=== PATIENT | female | born 1995 | race American Indian/Alaskan Native ===

== ENCOUNTER 2021-03-29 14:26 | Emergency (ER) | payer BC, MEDICAID ==
[2021-03-29 16:24] VITALS: BP 136/78
--- NOTE | 2021-03-29 17:03 | XRay Report ---
CHEST 2 VIEWS INDICATION: cough, SOB. COMPARISON: None FINDINGS: SUPPORT DEVICES: None. HEART: Within normal limits. LUNGS/PLEURA: No acute air space or interstitial disease. No pneumothorax. ADDITIONAL FINDINGS: None. IMPRESSION: 1. No acute findings. Signer Name: Bonilla Doss MD Signed: 03/29/2021 4:58 PM Workstation Name: [id number]
--- NOTE | 2021-03-29 17:08 | Emergency Department Report ---
- General Chief Complaint: Upper Respiratory Infection Stated Complaint: CHEST PPAIN / COUGH / HEADACHE Time Seen by Provider: 03/29/21 16:28 Source: patient Mode of arrival: Ambulatory Limitations: No Limitations - History of Present Illness Initial Comments: Patient is a 25-year-old female presents emergency room complaints of URI symptoms that began 5 days ago. She states that she recently just got home from vacation in [facility]. She has associated dry cough, rhinorrhea, headache, congestion, shortness of breath, chest tightness. She denies any productive cough. She denies any fever, nausea, vomiting, diarrhea, abdominal pain, urinary symptoms. She states the only thing that she has taken for her symptoms is baby cough medicine because she reports is all she had at home. Past medical history of Chiari malformation and kidney stones. No allergies to medications. Last menstrual cycle last week. She denies any known sick contacts. She has not received the COVID-19 vaccine or COVID-19 testing. - Related Data Previous Rx's Medication Instructions Recorded Last Taken Type Ciprofloxacin HCl [Ciprofloxacin 500 mg PO BID #12 tablet 03/04/14 Unknown Rx TAB] HYDROcodone/APAP 5-325 [[place] 1 each PO Q6HR PRN #20 tablet 03/04/14 Unknown Rx 5/325 mg] Benzonatate [Tessalon Perles] 100 mg PO Q8HR PRN #12 capsule 03/29/21 Unknown Rx Fluticasone [Flonase] 1 spray NS QDAY #1 bottle 03/29/21 Unknown Rx Loratadine 10 mg PO DAILY #14 tablet 03/29/21 Unknown Rx guaiFENesin ER [Mucinex ER] 600 mg PO BID #14 tablet.er 03/29/21 Unknown Rx Allergies Allergy/AdvReac Type Severity Reaction Status Date / Time No Known Allergies Allergy Unverified 02/27/14 18:42 ED Review of Systems ROS: Stated complaint: CHEST PPAIN / COUGH / HEADACHE Other details as noted in HPI Comment: All other systems reviewed and negative ED Past Medical Hx - Past Medical History Previous Medical History?: No Additional medical history: Brain tumor - Surgical History Additional Surgical History: Brain surgery @ age 9 - Social History Smoking Status: Never Smoker - Medications Home Medications: Home Medications Medication Instructions Recorded Confirmed Last Taken Type Ciprofloxacin HCl [Ciprofloxacin 500 mg PO BID #12 tablet 03/04/14 Unknown Rx TAB] HYDROcodone/APAP 5-325 [[place] 1 each PO Q6HR PRN #20 tablet 03/04/14 Unknown Rx 5/325 mg] Benzonatate [Tessalon Perles] 100 mg PO Q8HR PRN #12 capsule 03/29/21 Unknown Rx Fluticasone [Flonase] 1 spray NS QDAY #1 bottle 03/29/21 Unknown Rx Loratadine 10 mg PO DAILY #14 tablet 03/29/21 Unknown Rx guaiFENesin ER [Mucinex ER] 600 mg PO BID #14 tablet.er 03/29/21 Unknown Rx ED Physical Exam - General Limitations: No Limitations General appearance: alert, in no apparent distress - Head Head exam: Present: atraumatic, normocephalic - Eye Eye exam: Present: normal appearance - ENT ENT exam: Present: mucous membranes moist - Respiratory Respiratory exam: Present: normal lung sounds bilaterally. Absent: respiratory distress, wheezes, rales, rhonchi, stridor, chest wall tenderness, accessory muscle use, decreased breath sounds, prolonged expiratory - Cardiovascular Cardiovascular Exam: Present: regular rate, normal rhythm, normal heart sounds. Absent: systolic murmur, diastolic murmur, rubs, gallop - Neurological Exam Neurological exam: Present: alert, oriented X3 - Psychiatric Psychiatric exam: Present: normal affect, normal mood - Skin Skin exam: Present: warm, dry, intact ED Course Vital Signs 03/29/21 15:10 Temperature 98.7 F Pulse Rate 80 Respiratory 18 Rate Blood Pressure 136/78 O2 Sat by Pulse 96 Oximetry ED Medical Decision Making - Radiology Data Radiology results: report reviewed Ordering Physician: HARDEEP PINON Date of Service: 03/29/21 Procedure(s): XR chest routine 2V Accession Number(s): [id number] cc: HARDEEP PINON Fluoro Time In Minutes: CHEST 2 VIEWS INDICATION: cough, SOB. COMPARISON: None FINDINGS: SUPPORT DEVICES: None. HEART: Within normal limits. LUNGS/PLEURA: No acute air space or interstitial disease. No pneumothorax. ADDITIONAL FINDINGS: None. IMPRESSION: 1. No acute findings. Signer Name: Bonilla Doss MD Signed: 03/29/2021 4:58 PM Workstation Name: [id number] Transcribed By: AZALEA Dictated By: Bonilla Doss MD Electronically Authenticated By: Bonilla Doss MD Signed Date/Time: 03/29/211657 DD/ 57 TD/TT: - Medical Decision Making Patient is a 25-year-old female presents emergency room complaints of URI symptoms that began 5 days ago. She states that she recently just got home from vacation in [facility]. She has associated dry cough, rhinorrhea, headache, congestion, shortness of breath, chest tightness. She denies any productive cough. She denies any fever, nausea, vomiting, diarrhea, abdominal pain, urinary symptoms. She states the only thing that she has taken for her symptoms is baby cough medicine because she reports is all she had at home. Past medical history of Chiari malformation and kidney stones. No allergies to medications. Last menstrual cycle last week. She denies any known sick contacts. She has not received the COVID-19 vaccine or COVID-19 testing. Vitals are normal. Breath sounds are clear bilaterally, no wheezing, no rales, no rhonchi, no respiratory distress, no accessory muscle use. Chest x-ray: 1. No acute findings. Patient has no fever or productive cough at this time. Symptoms likely related to viral URI. Discussed the importance of follow-up for reexamination. Discussed return precautions. Advised patient Please take medication as prescribed. Increase your fluid intake. Please stop smoking. Follow-up with a primary care doctor for reexamination. Recommend for you to get outpatient COVID-19 testing and quarantine as necessary. Return to the emergency room with new or worsening symptoms. Critical care attestation.: If time is entered above; I have spent that time in minutes in the direct care of this critically ill patient, excluding procedure time. ED Disposition Clinical Impression: Tobacco use URI (upper respiratory infection) Qualifiers: URI type: supraglottitis Airway obstruction: without obstruction Qualified Code(s): J04.30 - Supraglottitis, unspecified, without obstruction Disposition: DC-01 TO HOME OR SELFCARE Is pt being admited?: No Does the pt Need Aspirin: No Condition: Stable Instructions: Viral Respiratory Infection, Steps to Quit Smoking Additional Instructions: Please take medication as prescribed. Increase your fluid intake. Please stop smoking. Follow-up with a primary care doctor for reexamination. Recommend for you to get outpatient COVID-19 testing and quarantine as necessary. Return to the emergency room with new or worsening symptoms. Prescriptions: Fluticasone [Flonase] 1 spray NS QDAY #1 bottle Loratadine 10 mg PO DAILY #14 tablet guaiFENesin ER [Mucinex ER] 600 mg PO BID #14 tablet.er Benzonatate [Tessalon Perles] 100 mg PO Q8HR PRN #12 capsule PRN Reason: cough Referrals: TRESA RASMUSSEN MD [Staff Physician] - 3-5 Days [facility] [Provider Group] - 3-5 Days [facility] [Outside] - 3-5 Days [facility] [Outside] - 3-5 Days Time of Disposition: 17:06 Print Language: TAJIK
== END 2021-03-29 17:15 | disposition home or self-care (01) ==
LOC: ED 14:26
DX: J06.9 Acute upper respiratory infection, unspecified (principal); Z79.899 Other long term (current) drug therapy; Z72.0 Tobacco use
CPT/HCPCS: 71046; 99283

== ENCOUNTER 2021-06-04 21:31 | Observation (INO) | payer BC ==
--- NOTE | 2021-06-04 22:38 | Emergency Department Report ---
ED Abdominal Pain HPI - General Chief Complaint: Abdominal Pain Stated Complaint: KIDNEY STONES PUI?: No Time Seen by Provider: 06/04/21 22:22 Source: patient, EMS Mode of arrival: Ambulatory Limitations: No Limitations - History of Present Illness Initial Comments: Patient is a 25-year-old female that presents emergency room with complaints of left flank pain. Patient states that her flank pain is severe and is a stabbing sensation. Patient states that 10. Patient states the pain is worsening. Patient states that she had her first kidney stone in 2006 and every time she has a kidney stone she has exact same symptoms. Patient states this is the same symptoms she gets every time she gets a kidney stone. Patient denies dysuria. Patient denies fever and chills. Patient denies nausea vomiting. Patient denies diarrhea. Patient denies recent travel. Patient denies recent international travel. Patient denies exposure to the novel coronavirus. Patient denies sick contacts. Patient denies fever and chills. Patient denies cough. Patient denies diarrhea. Patient denies coming in contact with anybody with symptoms of the novel coronavirus. MD Complaint: flank pain -: Sudden, days(s) Location: L flank Radiation: none Migration to: no migration Severity: severe Severity scale (0 -10): 10 Quality: stabbing, sharp Consistency: constant Improves With: rest Worsens With: movement Associated Symptoms: denies other symptoms. denies: nausea, vomiting, diarrhea, fever, chills, constipation, dysuria, hematemesis, hematochezia, melena, hematuria, anorexia, syncope - Related Data LMP (females 10-50): last week Previous Rx's Medication Instructions Recorded Last Taken Type Ciprofloxacin HCl [Ciprofloxacin 500 mg PO BID #12 tablet 03/04/14 Unknown Rx TAB] HYDROcodone/APAP 5-325 [[place] 1 each PO Q6HR PRN #20 tablet 03/04/14 Unknown Rx 5/325 mg] Benzonatate [Tessalon Perles] 100 mg PO Q8HR PRN #12 capsule 03/29/21 Unknown Rx Fluticasone [Flonase] 1 spray NS QDAY #1 bottle 03/29/21 Unknown Rx Loratadine 10 mg PO DAILY #14 tablet 03/29/21 Unknown Rx guaiFENesin ER [Mucinex ER] 600 mg PO BID #14 tablet.er 03/29/21 Unknown Rx Allergies Allergy/AdvReac Type Severity Reaction Status Date / Time No Known Allergies Allergy Unverified 02/27/14 18:42 ED Review of Systems ROS: Stated complaint: KIDNEY STONES Other details as noted in HPI Constitutional: denies: chills, fever Eyes: denies: eye pain, eye discharge, vision change ENT: denies: ear pain, throat pain Respiratory: denies: cough, shortness of breath, wheezing Cardiovascular: denies: chest pain, palpitations Endocrine: no symptoms reported Gastrointestinal: as per HPI. denies: nausea, vomiting, diarrhea Genitourinary: denies: urgency, dysuria, discharge Musculoskeletal: denies: back pain, joint swelling, arthralgia Skin: denies: rash, lesions Neurological: denies: headache, weakness, paresthesias Psychiatric: denies: anxiety, depression Hematological/Lymphatic: denies: easy bleeding, easy bruising ED Past Medical Hx - Past Medical History Previous Medical History?: Yes Hx Psychiatric Treatment: Yes (bipolar/schizophrenia) Additional medical history: Brain tumor - Surgical History Past Surgical History?: Yes Additional Surgical History: Brain surgery @ age 9 - Family History Family history: no significant - Social History Smoking Status: Never Smoker Substance Use Type: None - Medications Home Medications: Home Medications Medication Instructions Recorded Confirmed Last Taken Type Ciprofloxacin HCl [Ciprofloxacin 500 mg PO BID #12 tablet 03/04/14 Unknown Rx TAB] HYDROcodone/APAP 5-325 [[place] 1 each PO Q6HR PRN #20 tablet 03/04/14 Unknown Rx 5/325 mg] Benzonatate [Tessalon Perles] 100 mg PO Q8HR PRN #12 capsule 03/29/21 Unknown Rx Fluticasone [Flonase] 1 spray NS QDAY #1 bottle 03/29/21 Unknown Rx Loratadine 10 mg PO DAILY #14 tablet 03/29/21 Unknown Rx guaiFENesin ER [Mucinex ER] 600 mg PO BID #14 tablet.er 03/29/21 Unknown Rx ED Physical Exam - General Limitations: No Limitations General appearance: alert, in no apparent distress - Head Head exam: Present: atraumatic, normocephalic - Eye Eye exam: Present: normal appearance - ENT ENT exam: Present: mucous membranes moist - Neck Neck exam: Present: normal inspection - Respiratory Respiratory exam: Present: normal lung sounds bilaterally. Absent: respiratory distress - Cardiovascular Cardiovascular Exam: Present: regular rate, normal rhythm. Absent: systolic murmur, diastolic murmur, rubs, gallop - GI/Abdominal GI/Abdominal exam: Present: soft, tenderness (Left flank tenderness to palpation.), normal bowel sounds - Extremities Exam Extremities exam: Present: normal inspection - Back Exam Back exam: Present: normal inspection, CVA tenderness (L) - Neurological Exam Neurological exam: Present: alert, oriented X3 - Psychiatric Psychiatric exam: Present: normal affect, normal mood - Skin Skin exam: Present: warm, dry, intact, normal color. Absent: rash ED Course - Reevaluation(s) Reevaluation #1: Patient states her pain is better. Patient states she feels better. 06/05/21 00:18 Reevaluation #2: Patient states her pain is better. Patient still having moderate tenderness to the left flank area. I discussed all results with patient. I discussed plan of care with patient. Patient agrees with plan of care and admission. Patient to be admitted to the hospitalist service. - Consultations Consultation #1: Hospitalist consulted for admission. Hospitalist to admit patient. 06/05/21 01:18 ED Medical Decision Making - Lab Data Result diagrams: 06/04/21 22:52 06/04/21 22:52 - Radiology Data Radiology results: report reviewed CT ABDOMEN AND PELVIS WITHOUT CONTRAST HISTORY: Patient complains of LEFT sided flank pain.. COMPARISON: None. TECHNIQUE: CT images of the abdomen and pelvis were obtained without administration of intravenous contrast. All CT scans at this location are performed using CT dose reduction for ALARA by means of automated exposure control. FINDINGS: Lungs/bones: Lung bases are clear Abdomen/pelvis: Within limits of a noncontrast exam the liver, spleen, adrenal glands, pancreas, gallbladder and upper GI tract appear normal. Within the lower pole left kidney there is a nonobstructing left renal stone measuring 5 mm. There is also a proximal ureteral stone measuring 3 to 4 mm with some mild left hydronephrosis. Some lobulation of the kidneys bilaterally. 2 nonobstructing right renal stones are seen on coronal images measuring approximately 3 mm. Bowel loops appear normal. Urinary bladder is unremarkable. No acute bone findings are seen. IMPRESSION: 1. Nonobstructing bilateral renal stones. 2. Proximal left ureteral stone measuring 3 to 4 mm with mild left hydronephrosis. - Medical Decision Making Patient is a 25-year-old female that presents emergency room for left flank pain. Patient's pain is severe. Patient had labs done which were essentially unremarkable except for a UTI on her urine. Patient had a CT scan without contrast to rule out kidney stones. Patient's CT shows hydronephrosis and multiple stones. Patient given pain medication Zofran in the ER she responded we ll. Patient given IV fluids. Patient's clinical findings are concerning for pyelonephritis. Patient admitted to the hospital service for further evaluation treatment. Prior to admission, the patient given IV Rocephin and more IV fluids. Critical care time documented due to the multiple reassessments, prolonged time at the bedside, interpretation of diagnostics and labs. - Differential Diagnosis Pyelonephritis, UTI, septic stone, kidney stone, flank pain Critical Care Time: Yes Critical care time in (mins) excluding proc time.: 35 Critical care attestation.: If time is entered above; I have spent that time in minutes in the direct care of this critically ill patient, excluding procedure time. Critical Care Time: 35 minutes ED Disposition Clinical Impression: Pyelonephritis, Renal calculi UTI (urinary tract infection) Qualifiers: Urinary tract infection type: acute cystitis Hematuria presence: with hematuria Qualified Code(s): N30.01 - Acute cystitis with hematuria Disposition: ADMITTED INPATIENT Is pt being admited?: Yes Does the pt Need Aspirin: No Condition: Critical Instructions: Abdominal Pain (ED) Time of Disposition: 01:17
[2021-06-04] MEDS ORDERED: ONDANSETRON 4 MG/2 ML INJ IV ONE (22:39)
[2021-06-04] MEDS ORDERED: SODIUM CHLORIDE 0.9% 1000 ML 1,000 ML IV ONE (22:39)
[2021-06-04] MEDS ORDERED: HYDROmorphone 1 MG/1 ML INJ IV ONE (22:39)
[2021-06-04] MEDS ORDERED: KETOROLAC 30 MG/1 ML INJ IV ONE (22:39)
[2021-06-04 23:31] LABS: Basophils % (Auto) 0.4 % (0.0-1.8); Eosinophils # (Auto) 0.2 K/mm3 (0.0-0.4); Eosinophils % (Auto) 2.3 % (0.0-4.3); Hematocrit 38.2 % (30.3-42.9); Hemoglobin 12.5 gm/dl (10.1-14.3); Lymphocytes # (Auto) 2.3 K/mm3 (1.2-5.4); Lymphocytes % (Auto) 33.7 % (13.4-35.0); Mean Corpuscular HGB Conc 33 % (30-34); Mean Corpuscular Volume 78 fl (79-97); Monocytes # (Auto) 0.9 K/mm3 (0.0-0.8); Monocytes % (Auto) 13.1 % (0.0-7.3); Platelet Count 346 K/mm3 (140-440); Red Cell Distribution Width 15.8 % (13.2-15.2)
[2021-06-04 23:33] LABS: Bilirubin,Urine NEG (Negative); Blood,Urine SM (Negative); Color,Urine Yellow (Yellow); HCG Qualitative,Urine Negative (Negative); Mucus,Urine FEW /HPF; Protein,Urine <15 mg/dL mg/dL (Negative); Urobilinogen,Urine < 2.0 mg/dL (<2.0)
[2021-06-04 23:50] LABS: Alanine Aminotransferase 14 units/L (7-56); Albumin 3.9 g/dL (3.9-5); Blood Urea Nitrogen 8 mg/dL (7-17); Calcium 8.9 mg/dL (8.4-10.2); Hemolysis Index 3
[2021-06-04 23:51] LABS: BUN/Creatinine Ratio 11; Bilirubin,Direct < 0.2 mg/dL (0-0.2)
--- NOTE | 2021-06-05 00:39 | Cat Scan Report ---
CT ABDOMEN AND PELVIS WITHOUT CONTRAST HISTORY: Patient complains of LEFT sided flank pain.. COMPARISON: None. TECHNIQUE: CT images of the abdomen and pelvis were obtained without administration of intravenous co ntrast. All CT scans at this location are performed using CT dose reduction for ALARA by means of au tomated exposure control. FINDINGS: Lungs/bones: Lung bases are clear Abdomen/pelvis: Within limits of a noncontrast exam the liver, spleen, adrenal glands, pancreas, gal lbladder and upper GI tract appear normal. Within the lower pole left kidney there is a nonobstructin g left renal stone measuring 5 mm. There is also a proximal ureteral stone measuring 3 to 4 mm with s ome mild left hydronephrosis. Some lobulation of the kidneys bilaterally. 2 nonobstructing right tim l stones are seen on coronal images measuring approximately 3 mm. Bowel loops appear normal. Urinary bladder is unremarkable. No acute bone findings are seen. IMPRESSION: 1. Nonobstructing bilateral renal stones. 2. Proximal left ureteral stone measuring 3 to 4 mm with mild left hydronephrosis. Signer Name: Jayant Trevizo MD Signed: 06/05/2021 12:34 AM Workstation Name: [id number]
[2021-06-05] MEDS ORDERED: cefTRIAXone/NS 2 GM/100 ML 2 GM/100 ML BAG IV ONE (01:20)
[2021-06-05] MEDS ORDERED: HYDROmorphone 1 MG/1 ML INJ IV ONE (02:24)
[2021-06-05] MEDS ORDERED: HYDROmorphone 1 MG/1 ML INJ ONE (02:25)
[2021-06-05] MEDS: cefTRIAXone/NS 1 GM/50 ML 1 GM/50 ML BAG IV SCH ×2 (02:36→09:50)
[2021-06-05] MEDS ORDERED: SENNOSIDES 8.6 MG TAB PO PRN (03:00)
[2021-06-05] MEDS ORDERED: ONDANSETRON 4 MG/2 ML INJ IV PRN (03:00)
[2021-06-05] MEDS ORDERED: MAGNESIUM HYDROXIDE (MOM) ORAL LIQD UDC PO PRN (03:00)
[2021-06-05] MEDS ORDERED: oxyCODONE /ACETAMINOPHEN 5-325MG TAB PO PRN (03:00)
[2021-06-05] MEDS ORDERED: SODIUM CHLORIDE 0.9% 1000 ML 1,000 ML IV SCH (03:00)
[2021-06-05] MEDS ORDERED: MORPHINE 4 MG/1 ML INJ IV PRN (03:00)
[2021-06-05] MEDS ORDERED: ACETAMINOPHEN 325 MG TAB PO PRN (03:00)
[2021-06-05] MEDS ORDERED: NALOXONE 0.4 MG/1 ML INJ IV PRN (03:00)
[2021-06-05] MEDS ORDERED: ALUM-MAG HYDROXIDE-SIMETHICONE 200-200-20MG/5ML ORAL LIQD 30 ML PO PRN (03:00)
[2021-06-05] MEDS ORDERED: MORPHINE 2 MG/1 ML INJ IV PRN (03:00)
[2021-06-05] MEDS ORDERED: METOCLOPRAMIDE 10 MG/2 ML INJ IV PRN (03:00)
--- NOTE | 2021-06-05 03:00 | History and Physical Report ---
History of Present Illness Date of examination: 06/05/21 Date of admission: 06/05/21 01:23 Chief complaint: flank pain History of present illness: Patient is a 25-year-old female seen in the ED at bedside. Patient presents to emergency room with complaints of left flank pain. Patient states that her flank pain is severe and is a stabbing sensation. Patient states that 10 in a pain scale of 0-10. Patient states that she had her first kidney stone in 2006 and every time she has a kidney stone she has exact same symptoms. Patient states this is the same symptoms she gets every time she gets a kidney stone. Patient denies dysuria, fever and chills, nausea and vomiting. I reviewed medication record, vital signs, and medical history. CT of the abdomen and pelvis doneshowed nonobstructing bilateral renal stones and mild left hydronephrosis and proximal left ureteral stone measuring 3 to 4 mm. Urologist consulted. Past History Past Medical History: No medical history Past Surgical History: No surgical history Social history: no significant social history Medications and Allergies Allergies Allergy/AdvReac Type Severity Reaction Status Date / Time No Known Allergies Allergy Unverified 02/27/14 18:42 Home Medications Medication Instructions Recorded Confirmed Last Taken Type Ciprofloxacin HCl [Ciprofloxacin 500 mg PO BID #12 tablet 03/04/14 06/05/21 03/30/21 21:30 Rx TAB] HYDROcodone/APAP 5-325 [[place] 1 each PO Q6HR PRN #20 tablet 03/04/14 06/05/21 03/31/21 21:00 Rx 5/325 mg] Benzonatate [Tessalon Perles] 100 mg PO Q8HR PRN #12 capsule 03/29/21 06/05/21 04/01/21 20:50 Rx Fluticasone [Flonase] 1 spray NS QDAY #1 bottle 03/29/21 Unknown Rx Loratadine 10 mg PO DAILY #14 tablet 03/29/21 06/05/21 03/29/21 Rx guaiFENesin ER [Mucinex ER] 600 mg PO BID #14 tablet.er 03/29/21 06/05/21 03/29/21 Rx Active Meds: Active Medications Ceftriaxone Sodium (Rocephin/Ns 1 Gm/50 Ml) 1 gm in 50 mls @ 100 mls/hr IV Q24HR [facility]; Protocol Last Admin: 06/05/21 02:36 Dose: Not Given Documented by: Review of Systems Constitutional: fatigue, weakness Ears, nose, mouth and throat: no epistaxis, no bleeding gums Cardiovascular: no chest pain Gastrointestinal: abdominal pain Genitourinary Female: flank pain, urinary frequency, urgency Rectal: no hemorrhoids Musculoskeletal: no neck pain Integumentary: no rash, no pruritis, no redness Neurological: no head injury Hematologic/Lymphatic: no easy bruising, no easy bleeding Allergic/Immunologic: no urticaria, no allergic rhinitis Exam - Constitutional General appearance: Present: mild distress, obese - EENT Eyes: Present: PERRL ENT: hearing intact, clear oral mucosa - Neck Neck: Present: supple, normal ROM - Respiratory Respiratory effort: normal Respiratory: bilateral: CTA - Cardiovascular Heart Sounds: Present: S1 & S2. Absent: rub, click - Extremities Extremities: pulses symmetrical, No edema Peripheral Pulses: within normal limits - Abdominal General gastrointestinal: Present: soft, tender, non-distended, normal bowel sounds Female genitourinary: Present: normal - Integumentary Integumentary: Present: clear, warm, dry - Musculoskeletal Musculoskeletal: gait normal, strength equal bilaterally - Psychiatric Psychiatric: appropriate mood/affect, intact judgment & insight - Neurologic Neurologic: CNII-XII intact, moves all extremities Results - Labs CBC & Chem 7: 06/04/21 22:52 06/04/21 22:52 Labs: Abnormal lab results 06/04/21 06/04/21 06/04/21 Range/Units 22:52 22:52 23:23 MCV 78 L (79-97) fl MCH 25 L (28-32) pg RDW 15.8 H (13.2-15.2) % Moca % (Auto) 13.1 H (0.0-7.3) % [place] # (Auto) 0.9 H (0.0-0.8) K/mm3 Carbon Dioxide 31 H (22-30) mmol/L Glucose 113 H (65-100) mg/dL Urine WBC (Auto) 27.0 H (0.0-6.0) /HPF Assessment and Plan - Patient Problems (1) Pyelonephritis Current Visit: Yes Status: Acute Plan to address problem: Empiric antibiotic with Rocephin IV hydration Urine culture follow-up with results (2) Renal calculi Current Visit: Yes Status: Acute Plan to address problem: CT of the abdomen and pelvis doneshowed nonobstructing bilateral renal stones and mild left hydronephrosis. Proximal left ureteral stone measuring 3 to 4 mm Continue IV hydration. Consult urologist (3) Morbid obesity due to excess calories Current Visit: Yes Status: Acute Plan to address problem: Discussed lifestyle modification Healthy diet and regular exercise Check hemoglobin A1c (4) DVT prophylaxis Current Visit: Yes Status: Acute Plan to address problem: Subcutaneous lovenox
[2021-06-05] MEDS ORDERED: ENOXAPARIN 40 MG/0.4 ML INJ SUB-Q SCH (10:00)
[2021-06-05] MEDS ORDERED: FAMOTIDINE 20 MG/2 ML INJ IV SCH (10:00)
--- NOTE | 2021-06-05 12:31 | Consultation ---
History of Present Illness - Reason for Consult Consult date: 06/05/21 - History of Present Illness NEW TO OUR SERVICE PT EATING AT TIME OF INTERVIEW RELOCATED BACK TO [place] Patient is a 25-year-old female seen in the ED at bedside. Patient presents to emergency room with complaints of left flank pain. Patient states that her flank pain is severe and is a stabbing sensation. Patient states that 10 in a pain scale of 0-10. Patient states that she had her first kidney stone in 2006 and every time she has a kidney stone she has exact same symptoms. Patient states this is the same symptoms she gets every time she gets a kidney stone. Patient denies dysuria, fever and chills, nausea and vomiting. CT of the abdomen and pelvis doneshowed nonobstructing bilateral renal stones and mild left hydronephrosis and proximal left ureteral stone measuring 3 to 4 mm. ABD SOFT A/P LEFT URETERAL STONE - GETTING BETTER increased BMI INFO GIVEN TRIAL OF CONSERVATIVE THERAPY STRAINER FLOMAX, BACTRIM, NORCO ON CHART IF PAIN IMPROVED--OK TO DC HOME & APPT IN OFFICE PT HAD 4 STONES IN LIFE NEEDS METABOLIC WORKUP OUTPT Past History Past Medical History: No medical history Past Surgical History: No surgical history Social history: no significant social history Medications and Allergies Allergies Allergy/AdvReac Type Severity Reaction Status Date / Time No Known Allergies Allergy Unverified 02/27/14 18:42 Home Medications Medication Instructions Recorded Confirmed Last Taken Type Ciprofloxacin HCl [Ciprofloxacin 500 mg PO BID #12 tablet 03/04/14 06/05/21 03/30/21 21:30 Rx TAB] HYDROcodone/APAP 5-325 [[place] 1 each PO Q6HR PRN #20 tablet 03/04/14 06/05/21 03/31/21 21:00 Rx 5/325 mg] Benzonatate [Tessalon Perles] 100 mg PO Q8HR PRN #12 capsule 03/29/21 06/05/21 04/01/21 20:50 Rx Fluticasone [Flonase] 1 spray NS QDAY #1 bottle 03/29/21 Unknown Rx Loratadine 10 mg PO DAILY #14 tablet 03/29/21 06/05/21 03/29/21 Rx guaiFENesin ER [Mucinex ER] 600 mg PO BID #14 tablet.er 03/29/21 06/05/21 03/29/21 Rx Active Meds: Active Medications Acetaminophen (Acetaminophen 325 Mg Tab) 650 mg PO Q4H PRN PRN Reason: Pain MILD(1-3)/Fever >100.5/TORRES Al Hydrox/Mg Hydrox/Simethicone (Alum-Mag Hydroxide-Simethicone [id number]/5ml Oral Liqd 30 Ml) 30 ml PO Q4H PRN PRN Reason: Indigestion Enoxaparin Sodium (Enoxaparin 40 Mg/0.4 Ml Inj) 40 mg SUB-Q QDAY [facility] Last Admin: 06/05/21 09:51 Dose: 40 mg Documented by: Famotidine (Famotidine 20 Mg/2 Ml Inj) 20 mg IV BID [facility] Last Admin: 06/05/21 09:51 Dose: 20 mg Documented by: Ceftriaxone Sodium (Rocephin/Ns 1 Gm/50 Ml) 1 gm in 50 mls @ 100 mls/hr IV Q24HR JULIAN; Protocol Last Admin: 06/05/21 09:50 Dose: 100 mls/hr Documented by: Sodium Chloride (Nacl 0.9% 1000 Ml) 1,000 mls @ 100 mls/hr IV DIRECT JULIAN Last Admin: 06/05/21 03:51 Dose: 100 mls/hr Documented by: Magnesium Hydroxide (Magnesium Hydroxide (Mom) Oral Liqd Udc) 30 ml PO Q4H PRN PRN Reason: Constipation Metoclopramide HCl (Metoclopramide 10 Mg/2 Ml Inj) 10 mg IV Q6H PRN PRN Reason: Nausea And Vomiting Morphine Sulfate (Morphine 2 Mg/1 Ml Inj) 2 mg IV Q4H PRN PRN Reason: Pain, Moderate (4-6) Naloxone HCl (Naloxone 0.4 Mg/1 Ml Inj) 0.1 mg IV Q2MIN PRN PRN Reason: Res Rate </= 8 or 02 SAT < 92% Ondansetron HCl (Ondansetron 4 Mg/2 Ml Inj) 4 mg IV Q8H PRN PRN Reason: Nausea And Vomiting Oxycodone/Acetaminophen (Oxycodone /Acetaminophen 5-325mg Tab) 1 tab PO Q6H PRN PRN Reason: Pain, Moderate (4-6) Last Admin: 06/05/21 09:50 Dose: 1 tab Documented by: Senna (Sennosides 8.6 Mg Tab) 8.6 mg PO Q12HR PRN PRN Reason: Constipation Sodium Chloride (Sodium Chloride 0.9% 10 Ml Flush Syringe) 10 ml IV BID JULIAN Last Admin: 06/05/21 10:10 Dose: 10 ml Documented by: Exam - Constitutional Vitals: Temp Pulse Resp BP Pulse Ox 99.0 F 65 20 159/96 99 06/05/21 07:00 06/05/21 07:00 06/05/21 07:00 06/05/21 07:00 06/05/21 07:00 Results - Labs CBC & Chem 7: 06/04/21 22:52 06/04/21 22:52 Labs: Abnormal lab results 06/04/21 06/04/21 06/04/21 Range/Units 22:52 22:52 22:52 MCV 78 L (79-97) fl MCH 25 L (28-32) pg RDW 15.8 H (13.2-15.2) % [place] % (Auto) 13.1 H (0.0-7.3) % [place] # (Auto) 0.9 H (0.0-0.8) K/mm3 Carbon Dioxide 31 H (22-30) mmol/L Glucose 113 H (65-100) mg/dL Hemoglobin A1c 6.8 H (4-6) % Urine WBC (Auto) (0.0-6.0) /HPF 06/04/21 Range/Units 23:23 MCV (79-97) fl MCH (28-32) pg RDW (13.2-15.2) % [place] % (Auto) (0.0-7.3) % [place] # (Auto) (0.0-0.8) K/mm3 Carbon Dioxide (22-30) mmol/L Glucose (65-100) mg/dL Hemoglobin A1c (4-6) % Urine WBC (Auto) 27.0 H (0.0-6.0) /HPF
[2021-06-05 14:01] VITALS: BP 115/62
[2021-06-06] MEDS ORDERED: cefTRIAXone/NS 2 GM/100 ML 2 GM/100 ML BAG IV SCH (08:00)
--- NOTE | 2021-06-08 16:49 | Discharge Summary ---
Providers - Providers Date of Admission: 06/05/21 01:23 Date of discharge: 06/05/21 Attending physician: HERMILA NASH MD 06/05/21 06:46 Consult to Physician [CONS] Stat Comment: Consulting Provider: ROLY NAVARRO Physician Instructions: Reason For Exam: Hydronephrosis Primary care physician: BRITNI HARRELL Hospitalization Reason for admission: Urolithiasis Condition: Stable Hospital course: 25-year-old woman with with history of kidney stones who presented to the ED on 06/05 with left flank pain. CT of abdomen pelvis showed nonobstructing bilateral renal stones and mild left hydronephrosis. A ureteral stone was seen on the left measuring 3-4mm. Urology was consulted and evaluated the patient prior to discharge. She was discharged stable no longer having pain later that day. Disposition: 01 HOME / SELF CARE / HOMELESS Final Discharge Diagnosis (Prints w/discharge instructions): Urolithiasis Time spent for discharge: 20 minutes Core Measure Documentation - Palliative Care Palliative Care/ Comfort Measures: Not Applicable - Core Measures Any of the following diagnoses?: none - VTE Discharge Requirements Deep Vein Thrombosis/Pulmonary Embolism Present on Admission: No Has pt received <5 days of overlap therapy or INR<2.0: No Anticoagulant overlap therapy prescribed at discharge: No Contraindication No Overlap Therapy order at DC: Not Indicated - Acute NH Discharge Requirements Aspirin at discharge: No Reason for no aspirin on DC: Patient refusal (Not indicated) NÉSTOR/ARB for LVSD if EF <40%: Not Applicable Reason for no NÉSTOR/ARB: Patient refusal (Not indicated) Beta dotty at discharge: No Reason for no beta dotty on DC: Patient refusal (Not indicated) Statin for LDL = or >100 mg/dl on DC: Not Applicable Reason for no statin on DC: Patient refusal (Not indicated) - Heart Failure Discharge Requirements NÉSTOR/ARB for LVSD if EF <40%: Not Applicable Reason for no NÉSTOR/ARB: Patient refusal (Not indicated) Beta dotty at discharge: No Reason for no beta dotty on DC: Patient refusal (Not indicated) - Stroke Discharge Requirements Statin for LDL = or >70 mg/dl on DC: Not Applicable Reason for no statin on DC: Not Indicated Anticoag for atrial fib/atrial flutter: Not Applicable Reason for no anticoag for AF/F on DC: Not Indicated Antithrombotic for ischemic stroke: No Reason for no antithrombotic on DC: Not Indicated Exam - Physical Exam Narrative exam: GENERAL: Obese. Sitting on the side of the bed in no acute distress. CHEST/LUNGS: CTAB on room air HEART/CARDIOVASCULAR: RRR. No murmur, rubs or gallops appreciated. ABDOMEN: +BS. NT/ND. BACK: No CVA tenderness noted NEURO: No focal motor deficit. Follows all commands and is ambulatory. EXTREMITIES: No cyanosis, clubbing or edema. PSYCH: Cooperative. - Constitutional Vitals: Temp Pulse Resp BP Pulse Ox 97.2 F L 79 22 115/62 95 06/05/21 13:00 06/05/21 13:00 06/05/21 13:00 06/05/21 13:00 06/05/21 13:00 Plan Assessment: Improved. Patient pain well controlled. Denies dysuria, fever and chills. Seen by Urology. Will be discharged with PRN pain medication, flomax. Will follow up with Urology and primary care outpatient to address diabetes. Follow up with: BRITNI HARRELL III, HILARIA-DEANN [Primary Care Provider] - 3-5 Days ROLY NAVARRO MD [Staff Physician] - 06/25/21 Forms: Work/School Release Form Prescriptions: Sulfamethoxazole/Trimethoprim [Bactrim DS TAB] 1 each PO BID 7 Days #14 tablet Tamsulosin [Flomax] 0.4 mg PO QDAY 14 Days #14 cap HYDROcodone/APAP 5-325 [[place] 5/325] 1 each PO Q6HR PRN 3 Days #12 tablet PRN Reason: Pain
== END 2021-06-05 14:20 | disposition home or self-care (01) ==
LOC: ED 21:31 → 4A 06-05 01:23
PROVIDERS: ADMIT Internal Medicine Geriatric Medicine; ATTEND Student in an Organized Health Care Education/Training Program
DX: N12 Tubulo-interstitial nephritis, not specified as acute or chronic (principal); N20.0 Calculus of kidney; E66.01 Morbid (severe) obesity due to excess calories; F31.9 Bipolar disorder, unspecified; N30.01 Acute cystitis with hematuria; F20.9 Schizophrenia, unspecified; Z79.899 Other long term (current) drug therapy; Z98.890 Other specified postprocedural states; Z68.44 Body mass index [BMI] 60.0-69.9, adult
CPT/HCPCS: 36415; 74176; 80048; 80076; 81001; 81025; 83036; 85025; 87086; 96361; 96365; 96366; 96372; 96375; 96376; 99291; G0378; J0696; J1170; J1650; J1885; J2405; J7030

== ENCOUNTER 2021-07-30 17:03 | Emergency (ER) | payer BC ==
[2021-07-30] MEDS ORDERED: methylPREDNISolone Sod Succinate 125 MG/2 ML INJ IV ONE (17:23)
[2021-07-30] MEDS ORDERED: SODIUM CHLORIDE 0.9% 1000 ML 1,000 ML IV ONE (17:23)
[2021-07-30] MEDS ORDERED: FAMOTIDINE 20 MG/2 ML INJ IV ONE (17:24)
[2021-07-30] MEDS ORDERED: diphenhydrAMINE 50 MG/ML VIAL IV ONE (17:24)
[2021-07-30 18:51] VITALS: BP 137/82
[2021-07-30] MEDS ORDERED: ONDANSETRON 4 MG ODT TAB PO ONE (19:26)
[2021-07-30] MEDS ORDERED: HYDROcodone/ACETAMINOPHEN 10-325MG TAB PO ONE (19:26)
[2021-07-30] MEDS ORDERED: AMOXICILLIN/K CLAV 875/125MG TAB PO ONE (19:26)
--- NOTE | 2021-07-30 19:43 | Emergency Department Report ---
ED General Adult HPI - General Chief complaint: Allergic Reaction Stated complaint: LIP SWELLING Time Seen by Provider: 07/30/21 17:23 Source: patient Mode of arrival: Ambulatory Limitations: No Limitations - History of Present Illness Initial comments: Patient presents to the emergency department via EMS with chief complaint of a swollen upper lip that is painful. Patient states her lip began to swell on Tuesday morning and has increasingly become more swollen and painful. Patient denies taking any medications or in addition of medications. Patient denies any trauma. Denies a history of having swelling of her lips. She denies difficulty talking, swallowing, or eating. Patient denies chest pain, shortness breath, rash, headache. -: Gradual Radiation: non-radiation Severity scale (0 -10): 3 Quality: aching Consistency: constant Improves with: none Worsens with: none Associated Symptoms: denies other symptoms Treatments Prior to Arrival: none - Related Data Previous Rx's Medication Instructions Recorded Last Taken Type HYDROcodone/APAP 5-325 [[place] 1 each PO Q6HR PRN 3 Days #12 06/05/21 Unknown Rx 5/325] tablet Sulfamethoxazole/Trimethoprim 1 each PO BID 7 Days #14 tablet 06/05/21 Unknown Rx [Bactrim DS TAB] Tamsulosin [Flomax] 0.4 mg PO QDAY 14 Days #14 cap 06/05/21 Unknown Rx Acetaminophen/Codeine [Tylenol 1 tab PO Q6H PRN #15 tab 07/30/21 Unknown Rx /Codeine # 3 tab] Penicillin V Potassium 500 mg PO TID #30 tablet 07/30/21 Unknown Rx predniSONE [Deltasone] 20 mg PO DAILY #15 tablet 07/30/21 Unknown Rx Allergies Allergy/AdvReac Type Severity Reaction Status Date / Time No Known Allergies Allergy Verified 07/30/21 17:05 ED Review of Systems ROS: Stated complaint: LIP SWELLING Other details as noted in HPI Comment: All other systems reviewed and negative Constitutional: denies: chills, fever Eyes: denies: eye pain, eye discharge, vision change ENT: denies: ear pain, throat pain Respiratory: denies: cough, shortness of breath, wheezing Cardiovascular: denies: chest pain, palpitations Endocrine: no symptoms reported Gastrointestinal: denies: abdominal pain, nausea, diarrhea Genitourinary: denies: urgency, dysuria, discharge Musculoskeletal: denies: back pain, joint swelling, arthralgia Skin: denies: rash, lesions Neurological: denies: headache, weakness, paresthesias Psychiatric: denies: anxiety, depression Hematological/Lymphatic: denies: easy bleeding, easy bruising ED Past Medical Hx - Past Medical History Hx Congestive Heart Failure: No Hx Diabetes: No Hx Arthritis: No Hx Kidney Stones: Yes (right kidney stone) Hx Psychiatric Treatment: Yes (bipolar/schizophrenia) Hx Asthma: No Hx COPD: No Additional medical history: Brain tumor - Surgical History Additional Surgical History: Brain surgery @ age 9 - Social History Smoking Status: Never Smoker Substance Use Type: None - Medications Home Medications: Home Medications Medication Instructions Recorded Confirmed Last Taken Type HYDROcodone/APAP 5-325 [[place] 1 each PO Q6HR PRN 3 Days #12 06/05/21 07/30/21 Unknown Rx 5/325] tablet Sulfamethoxazole/Trimethoprim 1 each PO BID 7 Days #14 tablet 06/05/21 07/30/21 Unknown Rx [Bactrim DS TAB] Tamsulosin [Flomax] 0.4 mg PO QDAY 14 Days #14 cap 06/05/21 07/30/21 Unknown Rx Acetaminophen/Codeine [Tylenol 1 tab PO Q6H PRN #15 tab 07/30/21 Unknown Rx /Codeine # 3 tab] Penicillin V Potassium 500 mg PO TID #30 tablet 07/30/21 Unknown Rx predniSONE [Deltasone] 20 mg PO DAILY #15 tablet 07/30/21 Unknown Rx ED Physical Exam - General Limitations: No Limitations General appearance: alert, in no apparent distress - Head Head exam: Present: atraumatic, normocephalic - Eye Eye exam: Present: normal appearance - ENT ENT exam: Present: mucous membranes moist, other (Patient has swelling of the upper lip. There is no involvement of the oropharyngeal airway. There is no lift of the floor of the mouth. Patient does have gingival findings on exam. Uvula is midline. [place] tonsils are without erythema or exudate.) - Neck Neck exam: Present: normal inspection - Respiratory Respiratory exam: Present: normal lung sounds bilaterally. Absent: respiratory distress - Cardiovascular Cardiovascular Exam: Present: regular rate, normal rhythm. Absent: systolic murmur, diastolic murmur, rubs, gallop - GI/Abdominal GI/Abdominal exam: Present: soft, normal bowel sounds - Extremities Exam Extremities exam: Present: normal inspection - Back Exam Back exam: Present: normal inspection - Neurological Exam Neurological exam: Present: alert, oriented X3 - Psychiatric Psychiatric exam: Present: normal affect, normal mood - Skin Skin exam: Present: warm, dry, intact, normal color. Absent: rash ED Course Vital Signs 07/30/21 07/30/21 07/30/21 17:07 17:09 17:58 Temperature 98.5 F Pulse Rate 95 H Respiratory 20 Rate Blood Pressure 189/98 Blood Pressure [Right] O2 Sat by Pulse 100 97 99 Oximetry 07/30/21 07/30/21 07/30/21 18:01 18:15 18:31 Temperature Pulse Rate Respiratory Rate Blood Pressure Blood Pressure [Right] O2 Sat by Pulse 96 98 97 Oximetry 07/30/21 07/30/21 18:45 18:47 Temperature Pulse Rate 89 Respiratory 18 Rate Blood Pressure Blood Pressure 137/82 [Right] O2 Sat by Pulse 98 100 Oximetry ED Medical Decision Making - Medical Decision Making Patient was given IV Solu-Medrol, IV Benadryl, IV Pepcid as well as IV fluids. Patient reevaluated 2 hours with improvement of his symptoms. Critical care attestation.: If time is entered above; I have spent that time in minutes in the direct care of this critically ill patient, excluding procedure time. ED Disposition Clinical Impression: Swelling of upper lip Disposition: 01 HOME / SELF CARE / HOMELESS Is pt being admited?: No Does the pt Need Aspirin: No Condition: Stable Instructions: Angioedema Additional Instructions: return if worse or if you have difficulty swallowing, speaking, eating. Referrals: TRESA RASMUSSEN MD [Staff Physician] - 3-5 Days Time of Disposition: 19:31
== END 2021-07-30 20:01 | disposition home or self-care (01) ==
LOC: ED 17:03
DX: K13.0 Diseases of lips (principal); F20.9 Schizophrenia, unspecified; F31.9 Bipolar disorder, unspecified; Z79.899 Other long term (current) drug therapy
CPT/HCPCS: 96361; 96374; 96375; 99282; J1200; J2930; J7030; Q0162

== ENCOUNTER 2021-08-07 04:27 | Emergency (ER) | payer BC ==
[2021-08-07 04:31] VITALS: BP 153/82
[2021-08-07] MEDS ORDERED: ONDANSETRON 4 MG ODT TAB PO ONE (05:29)
[2021-08-07 05:59] LABS: Basophils % (Auto) 0.5 % (0.0-1.8); Eosinophils # (Auto) 0.1 K/mm3 (0.0-0.4); Eosinophils % (Auto) 1.5 % (0.0-4.3); Lymphocytes # (Auto) 2.3 K/mm3 (1.2-5.4); Lymphocytes % (Auto) 27.4 % (13.4-35.0); Mean Corpuscular HGB Conc 31 % (30-34); Mean Corpuscular Volume 78 fl (79-97); Monocytes # (Auto) 1.1 K/mm3 (0.0-0.8); Monocytes % (Auto) 13.1 % (0.0-7.3); Platelet Count 392 K/mm3 (140-440); Red Blood Count 5.01 M/mm3 (3.65-5.03); Red Cell Distribution Width 15.8 % (13.2-15.2)
[2021-08-07 06:14] LABS: Bilirubin,Urine NEG (Negative); Blood,Urine NEG (Negative); Color,Urine Straw (Yellow); Mucus,Urine FEW /HPF; Protein,Urine <15 mg/dL mg/dL (Negative); Urobilinogen,Urine < 2.0 mg/dL (<2.0)
[2021-08-07 06:19] LABS: Alanine Aminotransferase 14 units/L (7-56); Albumin 3.7 g/dL (3.9-5); BUN/Creatinine Ratio 17; Blood Urea Nitrogen 10 mg/dL (7-17); Calcium 9.1 mg/dL (8.4-10.2); Hemolysis Index 39
[2021-08-07 06:20] LABS: HCG Qualitative,Urine Negative (Negative)
== END 2021-08-07 06:06 | disposition left against medical advice (07) ==
LOC: ED 04:27
DX: R10.9 Unspecified abdominal pain (principal); Z53.21 Procedure and treatment not carried out due to patient leaving prior to being seen by health care provider
CPT/HCPCS: 36415; 80053; 81001; 81025; 83690; 85025; J3490; Q0162

== ENCOUNTER 2021-11-11 15:32 | Emergency (ER) | payer SELFPAY ==
[2021-11-11 20:13] LABS: Bilirubin,Urine NEG (Negative); Blood,Urine LG (Negative); Color,Urine Amber (Yellow); Mucus,Urine FEW /HPF
[2021-11-11 20:15] LABS: RBC,Urine > 182.0 /HPF (0.0-6.0)
[2021-11-11] MEDS ORDERED: ONDANSETRON 4 MG/2 ML INJ IV ONE (21:46)
[2021-11-11] MEDS ORDERED: cefTRIAXone/NS 1 GM/50 ML 1 GM/50 ML BAG IV ONE (21:46)
[2021-11-11] MEDS ORDERED: KETOROLAC 30 MG/1 ML INJ IV ONE (21:46)
[2021-11-11] MEDS ORDERED: SODIUM CHLORIDE 0.9% 1000 ML 1,000 ML IV ONE (21:46)
[2021-11-11 22:23] LABS: HCG Qualitative,Urine Negative (Negative)
[2021-11-11] MEDS ORDERED: ACETAMINOPHEN 500 MG TAB PO ONE (23:13)
[2021-11-11 23:42] LABS: Basophils % (Auto) 0.1 % (0.0-1.8); Eosinophils % (Auto) 0.1 % (0.0-4.3); Hematocrit 37.4 % (30.3-42.9); Hemoglobin 11.8 gm/dl (10.1-14.3); Lymphocytes % (Auto) 5.7 % (13.4-35.0); Mean Corpuscular HGB Conc 32 % (30-34); Mean Corpuscular Volume 77 fl (79-97); Monocytes # (Auto) 2.4 K/mm3 (0.0-0.8); Monocytes % (Auto) 13.6 % (0.0-7.3); Platelet Count 273 K/mm3 (140-440); Red Blood Count 4.87 M/mm3 (3.65-5.03); Red Cell Distribution Width 15.9 % (13.2-15.2)
[2021-11-11 23:48] LABS: Alanine Aminotransferase 12 units/L (7-56); Albumin 3.2 g/dL (3.9-5); BUN/Creatinine Ratio 8; Blood Urea Nitrogen 9 mg/dL (7-17); Calcium 8.5 mg/dL (8.4-10.2); Hemolysis Index 8
--- NOTE | 2021-11-12 00:55 | Cat Scan Report ---
CT abdomen pelvis w con INDICATION / CLINICAL INFORMATION: Pt complains of LEFT-sided flank pain. TECHNIQUE: Axial CT images were obtained through the abdomen and pelvis after 100 cc Omni 300 IV cont rast. All CT scans at this location are performed using CT dose reduction for ALARA by means of auto mated exposure control. COMPARISON: CT from 06/05/2021 FINDINGS: LOWER CHEST: No significant abnormality LIVER: Hepatic steatosis. GALLBLADDER/BILIARY TREE: No significant abnormality PANCREAS: No significant abnormality SPLEEN: No significant abnormality ADRENALS: No significant abnormality KIDNEYS / URETER: Multifocal areas of hypoenhancement throughout both kidneys, left greater than righ t. Findings are most consistent with pyelonephritis. There is no significant hydronephrosis on either side. No organized parenchymal collection or mass. URINARY BLADDER: Bladder is partially decompressed, though grossly unremarkable. REPRODUCTIVE ORGANS: No significant abnormality STOMACH / BOWEL: Small-moderate hiatal hernia. Small bowel is normal in caliber. The colon is unremar kable. The appendix is normal in caliber. LYMPH NODES: No significant adenopathy. VASCULATURE: No significant abnormality. OTHER: No free air, free fluid, or focal fluid collection is identified. 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 No acute proc ess. IMPRESSION: 1. Acute bilateral pyelonephritis, more pronounced on the left. 2. Other chronic and incidental findings as above. Signer Name: Pako Murdock MD Signed: 11/12/2021 12:51 AM Workstation Name: [id number]
[2021-11-12] MEDS ORDERED: SODIUM CHLORIDE 0.9% 1000 ML 1,000 ML IV ONE (00:56)
[2021-11-12] MEDS ORDERED: ONDANSETRON 4 MG/2 ML INJ IV ONE (00:56)
[2021-11-12] MEDS ORDERED: MORPHINE 4 MG/1 ML INJ IV ONE (00:56)
--- NOTE | 2021-11-12 02:32 | Emergency Department Report ---
ED Abdominal Pain HPI - General Chief Complaint: Urogenital-Female Stated Complaint: LT SIDE PAIN Source: patient Mode of arrival: Ambulatory Limitations: No Limitations - History of Present Illness Initial Comments: Patient is a 25-year-old -[place] female with a history of bipolar disorder, paranoid schizophrenia and chronic recurrent kidney stones who presents to the ED with complaint of acute onset persistent severe left flank pain with nausea and vomiting, chills, body aches and pains, dysuria, urinary frequency and urgency for the last 1 week, worse in the last 2 days. Patient states that she believes that she may be having a urinary tract infection and came to the ED for evaluation. Patient states that the symptoms have worsened especially in the last 12 hours such that she has not been able to keep anything down including fluids. Patient denies dizziness, syncope, vaginal bleeding, diarrhea, chest pain or shortness of breath, sore throat, headache, heavy lifting, fall, low back pain, numbness and tingling or weakness of lower extremities bilaterally, suicidal ideation or hallucinations. MD Complaint: abdominal pain (left flank), flank pain (left flank), other (Nausea and vomiting) -: Sudden, week(s) (1) Location: L flank Radiation: suprapubic, L flank Migration to: no migration Severity: severe Severity scale (0 -10): 8 Quality: aching, sharp Consistency: constant Improves With: nothing Worsens With: nothing Associated Symptoms: denies other symptoms, nausea, vomiting. denies: diarrhea, fever, chills, constipation, dysuria, hematemesis, hematochezia, melena, hematuria, syncope - Related Data LMP Date: 10/20/21 Previous Rx's Medication Instructions Recorded Last Taken Type HYDROcodone/APAP 5-325 [[place] 1 each PO Q6HR PRN 3 Days #12 06/05/21 Unknown Rx 5/325] tablet Tamsulosin [Flomax] 0.4 mg PO QDAY 14 Days #14 cap 06/05/21 Unknown Rx Penicillin V Potassium 500 mg PO TID #30 tablet 07/30/21 Unknown Rx predniSONE [Deltasone] 20 mg PO DAILY #15 tablet 07/30/21 Unknown Rx Acetaminophen/Codeine [Tylenol 1 tab PO Q6H PRN #15 tab 11/12/21 Unknown Rx /Codeine # 3 tab] Ketorolac [Toradol] 10 mg PO Q6H PRN #20 11/12/21 Unknown Rx Ondansetron [Zofran Odt] 4 mg PO Q8HR PRN #20 tab.rapdis 11/12/21 Unknown Rx Sulfamethoxazole/Trimethoprim 1 each PO Q12H 7 Days #20 tablet 11/12/21 Unknown Rx [Bactrim DS TAB] Allergies Allergy/AdvReac Type Severity Reaction Status Date / Time No Known Allergies Allergy Verified 07/30/21 17:05 ED Review of Systems ROS: Stated complaint: LT SIDE PAIN Other details as noted in HPI Constitutional: denies: chills, fever Eyes: denies: eye pain, eye discharge, vision change ENT: denies: ear pain, throat pain Respiratory: denies: cough, shortness of breath, wheezing Cardiovascular: denies: chest pain, palpitations Endocrine: no symptoms reported Gastrointestinal: abdominal pain (Left flank pain), nausea, vomiting. denies: diarrhea Genitourinary: urgency, dysuria, frequency. denies: hematuria, discharge Musculoskeletal: denies: back pain, joint swelling, arthralgia Skin: denies: rash, lesions Neurological: denies: headache, weakness, paresthesias Psychiatric: denies: anxiety, depression Hematological/Lymphatic: denies: easy bleeding, easy bruising ED Past Medical Hx - Past Medical History Hx Congestive Heart Failure: No Hx Diabetes: No Hx Arthritis: No Hx Kidney Stones: Yes (right kidney stone) Hx Psychiatric Treatment: Yes (bipolar/schizophrenia) Hx Asthma: No Hx COPD: No Additional medical history: Brain tumor - Surgical History Additional Surgical History: Brain surgery @ age 9 - Social History Smoking Status: Never Smoker Substance Use Type: None - Medications Home Medications: Home Medications Medication Instructions Recorded Confirmed Last Taken Type HYDROcodone/APAP 5-325 [[place] 1 each PO Q6HR PRN 3 Days #12 06/05/21 07/30/21 Unknown Rx 5/325] tablet Tamsulosin [Flomax] 0.4 mg PO QDAY 14 Days #14 cap 06/05/21 07/30/21 Unknown Rx Penicillin V Potassium 500 mg PO TID #30 tablet 07/30/21 Unknown Rx predniSONE [Deltasone] 20 mg PO DAILY #15 tablet 07/30/21 Unknown Rx Acetaminophen/Codeine [Tylenol 1 tab PO Q6H PRN #15 tab 11/12/21 Unknown Rx /Codeine # 3 tab] Ketorolac [Toradol] 10 mg PO Q6H PRN #20 11/12/21 Unknown Rx Ondansetron [Zofran Odt] 4 mg PO Q8HR PRN #20 tab.rapdis 11/12/21 Unknown Rx Sulfamethoxazole/Trimethoprim 1 each PO Q12H 7 Days #20 tablet 11/12/21 Unknown Rx [Bactrim DS TAB] ED Physical Exam - General Limitations: No Limitations General appearance: alert, in no apparent distress - Head Head exam: Present: atraumatic, normocephalic, normal inspection - Eye Eye exam: Present: normal appearance, PERRL, EOMI Pupils: Present: normal accommodation - ENT ENT exam: Present: normal exam, normal orophraynx, mucous membranes moist, TM's normal bilaterally, normal external ear exam - Neck Neck exam: Present: normal inspection, full ROM. Absent: tenderness - Respiratory Respiratory exam: Present: normal lung sounds bilaterally. Absent: respiratory distress, wheezes, rales, rhonchi, chest wall tenderness, accessory muscle use, decreased breath sounds - Cardiovascular Cardiovascular Exam: Present: normal rhythm, tachycardia, normal heart sounds. Absent: systolic murmur, diastolic murmur, rubs, gallop - GI/Abdominal GI/Abdominal exam: Present: soft, tenderness (Palpable left flank tenderness, no guarding or rebound), normal bowel sounds. Absent: guarding, rebound, rigid, hyperactive bowel sounds, hypoactive bowel sounds, organomegaly - Extremities Exam Extremities exam: Present: normal inspection, full ROM, normal capillary refill - Back Exam Back exam: Present: normal inspection, full ROM, CVA tenderness (R), CVA tenderness (L). Absent: tenderness, muscle spasm, paraspinal tenderness, vertebral tenderness, rash noted - Neurological Exam Neurological exam: Present: alert, oriented X3, CN II-XII intact, normal gait, reflexes normal - Psychiatric Psychiatric exam: Present: normal mood, anxious, flat affect. Absent: homicidal ideation, suicidal ideation - Skin Skin exam: Present: warm, dry, intact, normal color. Absent: rash ED Course Vital Signs 11/11/21 11/11/21 11/12/21 16:45 22:08 01:13 Temperature 99.7 F H Pulse Rate 103 H Respiratory 18 14 14 Rate Blood Pressure 133/89 [Right] O2 Sat by Pulse 98 Oximetry 11/12/21 11/12/21 02:33 02:41 Temperature 101.5 F H Pulse Rate 84 118 H Respiratory 17 Rate Blood Pressure 128/79 [Right] O2 Sat by Pulse 100 95 Oximetry ED Medical Decision Making - Lab Data Result diagrams: 11/11/21 22:46 11/11/21 22:46 - Radiology Data [facility] [address] [place] [address] Cat Scan Report Signed Patient: MAGI CHU MR#: [id number] 37 : 1995 Acct:[id number] Age/Sex: 25 / F ADM Date: 11/11/21 Loc: ED Attending Dr: Ordering Physician: HARDEEP AMADOR Date of Service: 11/11/21 Procedure(s): CT abdomen pelvis w con Accession Number(s): [id number] cc: HARDEEP AMADOR CT abdomen pelvis w con INDICATION / CLINICAL INFORMATION: Pt complains of LEFT-sided flank pain. TECHNIQUE: Axial CT images were obtained through the abdomen and pelvis after 100 cc Omni [address] scans at this location are performed using CT dose reduction for ALARA by means of automated exposure control. COMPARISON: CT from 06/05/2021 FINDINGS: LOWER CHEST: No significant abnormality LIVER: Hepatic steatosis. GALLBLADDER/BILIARY TREE: No significant abnormality PANCREAS: No significant abnormality SPLEEN: No significant abnormality ADRENALS: No significant abnormality KIDNEYS / URETER: Multifocal areas of hypoenhancement throughout both kidneys, left greater than right. Findings are most consistent with pyelonephritis. There is no significant hydronephrosis on either side. No organized parenchymal collection or mass. URINARY BLADDER: Bladder is partially decompressed, though grossly unremarkable. REPRODUCTIVE ORGANS: No significant abnormality STOMACH / BOWEL: Small-moderate hiatal hernia. Small bowel is normal in deann iber. The colon is unremarkable. The appendix is normal in caliber. LYMPH NODES: No significant adenopathy. VASCULATURE: No significant abnormality. OTHER: No free air, free fluid, or focal fluid collection is identified. 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 No acute process. IMPRESSION: 1. Acute bilateral pyelonephritis, more pronounced on the left. 2. Other chronic and incidental findings as above. Signer Name: Cindy Reeves MD Signed: 11/12/2021 12:51 AM Workstation Name: [id number] Transcribed By: CYNTHIA Dictated By: CINDY REEVES MD Electronically Authenticated By: CINDY REEVES MD Signed Date/Time: 11/12/2150 DD/ TD/TT: - Medical Decision Making This is a 25-year-old -[place] female with a history of bipolar disorder, paranoid schizophrenia and chronic recurrent kidney stones who presents to the ED with complaint of acute onset persistent severe left flank pain with nausea and vomiting, chills, body aches and pains, dysuria, urinary frequency and urgency for the last 1 week, worse in the last 2 days. Patient states that she believes that she may be having a urinary tract infection and came to the ED for evaluation. Patient states that the symptoms have worsened especially in the last 12 hours such that she has not been able to keep anything down including fluids. In the ED, patient is alert and oriented x3 and is not in any distress but tachycardic and in afebrile. Patient received normal saline 2 L IV bolus, also received pain medications, antiemetics. Lab test results were reviewed and showed acute leukocytosis of 17,600, and urinalysis showed significant urinary tract infection with hematuria. Abdomen pelvis CT scan with contrast showed acute bilateral pyelonephritis more pronounced on the left. Patient was also treated in the ED with antibiotics Rocephin 1 g IV x1 as well as more pain medications. On reevaluation, patient is hemodynamically stable. Patient's pain resolved with medications. Patient was discharged home on pain medications and antibiotics as well as antiemetics and was advised to follow-up with her primary care physician in 5 to 7 days for reevaluation or return to the ED immediately if symptoms get worse. - Differential Diagnosis Kidney stone; UTI; pyelonephritis; muscle spasm; muscle strain Critical care attestation.: If time is entered above; I have spent that time in minutes in the direct care of this critically ill patient, excluding procedure time. ED Disposition Clinical Impression: Acute pyelonephritis due to bacteria, Acute urinary tract infection, Acute abdominal pain in left flank Disposition: 01 HOME / SELF CARE / HOMELESS Is pt being admited?: No Does the pt Need Aspirin: No Condition: Stable Instructions: Pyelonephritis, Adult, [id number], Urinary Tract Infection, Adult, [id number], Flank Pain, Adult, [id number] Additional Instructions: All lab test results were reviewed and showed leukocytosis, abdomen pelvis CT scan with contrast showed left pyelonephritis which is an infection in the kidneys. You have received antibiotics in the ED with pain medications. You are hemodynamically stable. Therefore take medications with food, drink plenty of fluids and follow-up with your primary care physician in 5 to 7 days for reevaluation. Return to the ED immediately if symptoms get worse. Prescriptions: Sulfamethoxazole/Trimethoprim [Bactrim DS TAB] 1 each PO Q12H 7 Days #20 tablet Ketorolac [Toradol] 10 mg PO Q6H PRN #20 PRN Reason: Pain Acetaminophen/Codeine [Tylenol /Codeine # 3 tab] 1 tab PO Q6H PRN #15 tab PRN Reason: pain Ondansetron [Zofran Odt] 4 mg PO Q8HR PRN #20 tab.rapdis PRN Reason: Nausea Referrals: [facility] [Provider Group] - 3-5 Days Forms: Work/School Release Form(ED) Time of Disposition: 02:29 Print Language: ROMANSH
[2021-11-12 02:48] VITALS: BP 128/79
== END 2021-11-12 06:33 | disposition home or self-care (01) ==
LOC: ED 15:32
DX: N12 Tubulo-interstitial nephritis, not specified as acute or chronic (principal); B96.89 Other specified bacterial agents as the cause of diseases classified elsewhere; N39.0 Urinary tract infection, site not specified; R10.31 Right lower quadrant pain
CPT/HCPCS: 36415; 74177; 80053; 81001; 81025; 85025; 96361; 96365; 96375; 96376; 99284; J0696; J1885; J2270; J2405; J7030; Q9967; Q0162

== ENCOUNTER 2021-11-16 13:32 | Emergency (ER) | payer SELFPAY ==
[2021-11-16] MEDS ORDERED: LIDOCAINE-MPF (1%) 10 MG/1 ML VIAL 5 ML INFILTRATI ONE (14:32)
[2021-11-16] MEDS ORDERED: MORPHINE 4 MG/1 ML INJ IM ONE (14:34)
[2021-11-16] MEDS ORDERED: METOCLOPRAMIDE 10 MG TAB PO ONE (14:34)
[2021-11-16] MEDS ORDERED: diphenhydrAMINE 25 MG CAP PO ONE (14:35)
[2021-11-16] MEDS ORDERED: ONDANSETRON 4 MG ODT TAB PO ONE (14:35)
[2021-11-16] MEDS ORDERED: levoFLOXacin 500 MG TAB PO ONE (14:35)
[2021-11-16 15:31] LABS: Bilirubin,Urine NEG (Negative); Blood,Urine SM (Negative); Color,Urine Yellow (Yellow)
[2021-11-16 15:32] LABS: RBC,Urine < 1.0 /HPF (0.0-6.0); WBC,Urine < 1.0 /HPF (0.0-6.0)
--- NOTE | 2021-11-16 16:17 | Emergency Department Report ---
ED Female HPI - General Chief complaint: Abdominal Pain Stated complaint: NAUSEA, VOMITING, LEFT FLANK PAIN Time Seen by Provider: 11/16/21 14:09 Source: EMS Mode of arrival: Ambulatory Limitations: No Limitations - History of Present Illness Initial comments: 26 yof presents to ed for evaluation left flank painand n/v. She states that she was seen here a few days ago, diagnosed with pyelonephritis and was sent home with antibiotics, pain meds, and anti emetics but has not had any improvement. She states that pain is 10/10, still having vomiting several times daily, but fever has mostly resolved. She states that she has been taking medications as prescribed. MD Complaint: other (left flank pain) -: Gradual, days(s) (several) Location: LLQ, other (left flank) Severity: severe Severity scale (0 -10): 10 Quality: cramping, aching Consistency: constant Worsens with: movement Are you Now?: No Associated Symptoms: abdominal pain, nausea/vomiting, fever/chills, loss of appetite. denies: vaginal discharge, vaginal bleeding, headaches, dysuria, hematuria, rash, syncope, weakness - Related Data Previous Rx's Medication Instructions Recorded Last Taken Type HYDROcodone/APAP 5-325 [[place] 1 each PO Q6HR PRN 3 Days #12 06/05/21 Unknown Rx 5/325] tablet Tamsulosin [Flomax] 0.4 mg PO QDAY 14 Days #14 cap 06/05/21 Unknown Rx Penicillin V Potassium 500 mg PO TID #30 tablet 07/30/21 Unknown Rx predniSONE [Deltasone] 20 mg PO DAILY #15 tablet 07/30/21 Unknown Rx Acetaminophen/Codeine [Tylenol 1 tab PO Q6H PRN #15 tab 11/12/21 Unknown Rx /Codeine # 3 tab] Ketorolac [Toradol] 10 mg PO Q6H PRN #20 11/12/21 Unknown Rx Ondansetron [Zofran Odt] 4 mg PO Q8HR PRN #20 tab.rapdis 11/12/21 Unknown Rx Sulfamethoxazole/Trimethoprim 1 each PO Q12H 7 Days #20 tablet 11/12/21 Unknown Rx [Bactrim DS TAB] Metoclopramide [Reglan] 10 mg PO TID PRN #12 tab 11/16/21 Unknown Rx Allergies Allergy/AdvReac Type Severity Reaction Status Date / Time No Known Allergies Allergy Verified 07/30/21 17:05 ED Review of Systems ROS: Stated complaint: NAUSEA, VOMITING, LEFT FLANK PAIN Other details as noted in HPI Comment: All other systems reviewed and negative Constitutional: chills, fever. denies: diaphoresis, malaise, weakness Eyes: denies: eye pain ENT: denies: ear pain Respiratory: denies: cough, shortness of breath Cardiovascular: denies: chest pain, palpitations, dyspnea on exertion, edema, syncope Endocrine: no symptoms reported Gastrointestinal: abdominal pain, nausea, vomiting, hematemesis, melena, hematochezia Genitourinary: dysuria, frequency. denies: urgency, hematuria, discharge Musculoskeletal: back pain Skin: denies: rash Neurological: denies: headache, weakness Psychiatric: denies: anxiety Hematological/Lymphatic: denies: easy bleeding, easy bruising ED Past Medical Hx - Past Medical History Hx Congestive Heart Failure: No Hx Diabetes: No Hx Arthritis: No Hx Kidney Stones: Yes (right kidney stone) Hx Psychiatric Treatment: Yes (bipolar/schizophrenia) Hx Asthma: No Hx COPD: No Additional medical history: Brain tumor - Surgical History Additional Surgical History: Brain surgery @ age 9 - Social History Smoking Status: Never Smoker Substance Use Type: None - Medications Home Medications: Home Medications Medication Instructions Recorded Confirmed Last Taken Type HYDROcodone/APAP 5-325 [[place] 1 each PO Q6HR PRN 3 Days #12 06/05/21 07/30/21 Unknown Rx 5/325] tablet Tamsulosin [Flomax] 0.4 mg PO QDAY 14 Days #14 cap 06/05/21 07/30/21 Unknown Rx Penicillin V Potassium 500 mg PO TID #30 tablet 07/30/21 Unknown Rx predniSONE [Deltasone] 20 mg PO DAILY #15 tablet 07/30/21 Unknown Rx Acetaminophen/Codeine [Tylenol 1 tab PO Q6H PRN #15 tab 11/12/21 Unknown Rx /Codeine # 3 tab] Ketorolac [Toradol] 10 mg PO Q6H PRN #20 11/12/21 Unknown Rx Ondansetron [Zofran Odt] 4 mg PO Q8HR PRN #20 tab.rapdis 11/12/21 Unknown Rx Sulfamethoxazole/Trimethoprim 1 each PO Q12H 7 Days #20 tablet 11/12/21 Unknown Rx [Bactrim DS TAB] Metoclopramide [Reglan] 10 mg PO TID PRN #12 tab 11/16/21 Unknown Rx ED Physical Exam - General Limitations: No Limitations General appearance: alert, in no apparent distress - Head Head exam: Present: atraumatic, normocephalic - Eye Eye exam: Present: normal appearance. Absent: conjunctival injection - Neck Neck exam: Present: normal inspection. Absent: tenderness - Respiratory Respiratory exam: Present: normal lung sounds bilaterally. Absent: respiratory distress, wheezes, chest wall tenderness - Cardiovascular Cardiovascular Exam: Present: normal heart sounds - GI/Abdominal GI/Abdominal exam: Present: soft, tenderness (LLQ and left flank), normal bowel sounds. Absent: distended - Extremities Exam Extremities exam: Present: normal inspection - Back Exam Back exam: Present: normal inspection, CVA tenderness (L). Absent: tenderness, CVA tenderness (R) - Neurological Exam Neurological exam: Present: alert, oriented X3 - Psychiatric Psychiatric exam: Present: normal affect, normal mood - Skin Skin exam: Present: warm, dry, intact, normal color ED Course Vital Signs 11/16/21 11/16/21 13:35 16:42 Temperature 98.4 F Pulse Rate 87 90 Respiratory 18 16 Rate Blood Pressure 194/93 146/98 [Left] O2 Sat by Pulse 97 100 Oximetry - Reevaluation(s) Reevaluation #1: 11/16/21 16:14 Nausea vomiting resolved. Pain much improved. Patient states that she feels much better. ED Medical Decision Making - Medical Decision Making 26 yof presents to ed for evaluation left flank painand n/v. She states that s he was seen here a few days ago, diagnosed with pyelonephritis and was sent home with antibiotics, pain meds, and anti emetics but has not had any improvement. She states that pain is 10/10, still having vomiting several times daily, but fever has mostly resolved. She states that she has been taking medications as prescribed. UA noted to be improved from previous sample of few days ago, so pyelonephritis is improving. Patient was treated with one time dose of Rocephin 1 gm IV and Levaquin 500 mg po to increase antibacterial load to improve symptoms. She was given benadryl and reglan and n/v was resolved, and morphine 4 mg IV which significantly improved pain. She was advised to continue Bactrim as previously prescribed along with pain medications and anti-emetics. She was given reglan to use for n/v not relieved by Zofran. She was advised to follow up with pcp or in ED if worsening symptoms. She verbalized understanding of and agreement with plan of care. Critical care attestation.: If time is entered above; I have spent that time in minutes in the direct care of this critically ill patient, excluding procedure time. ED Disposition Clinical Impression: Left flank pain Disposition: HOME / SELF CARE / HOMELESS Is pt being admited?: No Does the pt Need Aspirin: No Condition: Stable Instructions: Flank Pain, Adult, [id number], Abdominal Pain (ED) Additional Instructions: Finish antibiotics that you were previously prescribed. You can use Zofran as previously prescribed for nausea but I will also prescribe you another medication called Reglan that she can use as needed for nausea. Follow-up with primary care provider if symptoms return. Return to the emergency department if you develop fever worsening pain. Prescriptions: Metoclopramide [Reglan] 10 mg PO TID PRN #12 tab PRN Reason: Nausea And Vomiting Referrals: PRIMARY CARE, [Primary Care Provider] - 3-5 Days Time of Disposition: 16:17
[2021-11-16 16:45] VITALS: BP 146/98
== END 2021-11-16 16:47 | disposition home or self-care (01) ==
LOC: ED 13:32
DX: R10.32 Left lower quadrant pain (principal)
CPT/HCPCS: 81001; 96372; 99283; J0696; J2270; J3490; Q0162